=== PATIENT | male | born 1935 | race Caucasian/White ===

== ENCOUNTER 2016-10-13 12:25 | Emergency (ER) | payer BC ==
[~2016-10-13] VITALS: Ht 170.2 cm; Wt 71.0 kg
[2016-10-13 12:28] VITALS: Ht 170.2 cm; Wt 71.0 kg
[2016-10-13] MEDS ORDERED: ONDANSETRON (ODT) 4 MG TAB ODT STA (12:28)
[2016-10-13] MEDS ORDERED: OXYCODONE/ACETAMINOPHEN (5/325) TAB PO ONE (12:30)
--- NOTE | 2016-10-13 12:35 | ERD ---
ER Documentation Chief Complaint Date/Time DATE: 10/13/16 TIME: 12:30 Chief Complaint HPI Patient is an 81-year-old male who was at [employer] exercising when he accidentally tripped over an exercise bike and hit the right side of his chest on his luggage in which he carries his exercise equipment. The handle was upright and this is what he hit the right side of his chest on. He denies any dyspnea, hemoptysis, head trauma, neck pain, back pain, abdominal pain, vomiting, visual changes, paresthesias, or focal weakness. He states he was in his usual state of health prior to the fall. He did not have chest pain prior to the fall. He says it hurts in the right lower chest rib area where he hit his chest on his luggage. It hurts when he moves his chest and when he takes a deep breath and it is better when he holds his chest. He denies any abrasions, bleeding, or bruises. In the remainder of the systems are negative. ROS All systems reviewed and are negative except as per history of present illness. Medications Home Meds Reported Medications Simvastatin* (Zocor*) 10 Mg Tablet, 10 MG PO QHS, #30 TAB 10/13/16 Gabapentin* (Gabapentin*) 100 Mg Capsule, 100 MG PO TID Y for PAIN, #90 CAP 10/13/16 Cholecalciferol* (Vitamin D3*) 1,000 Unit Tablet, 2000 UNIT PO DAILY, TAB 10/13/16 Finasteride* (Finasteride*) 5 Mg Tablet, 5 MG PO DAILY, TAB 10/13/16 Allopurinol* (Allopurinol*) 300 Mg Tablet, 150 MG PO DAILY, TAB 10/13/16 Allergies Allergies: Coded Allergies: No Known Allergy (Unverified , 10/13/16) FmHx Family History: coronary disease Physical Exam Vitals Vital Signs Date Time Temp Pulse Resp B/P Pulse Ox O2 Delivery O2 Flow Rate FiO2 10/13/16 12:28 97.8 61 18 184/76 100 Physical Exam Const: [] Well-developed well-nourished male sitting on the bed in no acute distress Head: Atraumatic normocephalic Eyes: Normal Conjunctiva ENT: Normal External Ears, Nose and Mouth. Neck: Full range of motion..~ No meningismus. Resp: Clear to auscultation bilaterally, mild tenderness to palpation in the right middle and lower chest wall, no crepitus noted, no chest wall deformities , no flail chest Cardio: Regular rate and rhythm, no murmurs Abd: Soft, non tender, non distended. Normal bowel sounds Skin: No petechiae or rashes Back: No midline or flank tenderness Ext: No cyanosis, or edema, moves all extremities with no deformities noted Neur: Awake and alert oriented 3, with a GCS of 15, moves all extremities equally Psych: Normal Mood and Affect Results 24 hrs Current Medications Medications (Trade) Dose Ordered Sig/Juan A Route PRN Reason Start Time Stop Time Status Last Admin Dose Admin Oxycodone/ Acetaminophen (Percocet (5/ 325)) 2 tab ONCE ONCE PO 10/13/16 12:30 10/13/16 12:31 DC 10/13/16 12:39 Ondansetron HCl (Zofran Odt) 4 mg ONCE STAT ODT 10/13/16 12:28 10/13/16 12:30 DC 10/13/16 12:39 Procedures/MDM Differential includes but is not limited to rib fracture, pneumothorax, chest wall strain, rib contusion, pulmonary contusion, fall Chest x-ray does not reveal any acute cardiopulmonary process Rib films do not reveal any acute fractures 1350: Patient states he feels much improved. He states he feels he is ready for discharge. He appears stable for discharge home with follow-up as an outpatient. Departure Diagnosis: Primary Impression: Fall Encounter type: initial encounter Qualified Code: W19.XXXA - Fall, initial encounter Additional Impression: Contusion of rib on right side Encounter type: initial encounter Qualified Code: S20.211A - Contusion of rib on right side, initial encounter Condition: Stable Patient Instructions: Fall, Mechanical, Rib Contusion Additional Instructions: Activity as is comfortable for you. Take the pain medications as needed. Please see her primary care physician in the next 7-10 days if you are not improving or if you require any pain medication refills. Return to the emergency department for any new or worsening symptoms. ALLYSON STALEY Oct 13, 2016 12:35
[2016-10-13] MEDS ORDERED: FINA5TAB4 PO (13:37)
[2016-10-13] MEDS ORDERED: ALLO300T2 PO (13:37)
[2016-10-13] MEDS ORDERED: GABA100C14 PO (13:38)
[2016-10-13] MEDS ORDERED: CHOL100062 PO (13:38)
[2016-10-13] MEDS ORDERED: SIMV10TA PO (13:38)
--- NOTE | 2016-10-13 13:42 | RADRPT ---
PROCEDURE: XR right rib series. CLINICAL INDICATION: Rib pain TECHNIQUE: 2 views of the rib cage are available for review COMPARISON: No comparison study available FINDINGS: The ribs are normal in mineralization and architecture. No fracture is identified. No osseous lesi on is identified. The visualized lung alvarez are unremarkable. The pleural spaces are unremarkable . No effusion or pneumothorax is identified. IMPRESSION: Unremarkable examination RPTAT: [facility] .Chaim Garrison MD, MD Date Time Electronically viewed and signed by .Chaim Garrison MD, on 10/13/2016 13:42 .B/
--- NOTE | 2016-10-13 13:43 | RADRPT ---
PROCEDURE: XR Chest. CLINICAL INDICATION: Chest pain TECHNIQUE: Chest PA and lateral COMPARISON: None available FINDINGS: The mediastinal structures are unremarkable. There is calcification of the thoracic aorta (consiste nt with atherosclerosis). The heart is normal in size and configuration. The pulmonary vascularity is normal. The lung alvarez are unremarkable. No consolidation is identified. The pleural spaces are unremarkable. There are senescent changes of the axial skeleton. IMPRESSION: Calcification of the thoracic aorta (consistent with atherosclerosis). No evidence for active cardiopulmonary disease. RPTAT: [facility] .Chaim Garrison MD, MD Date Time Electronically viewed and signed by .Chaim Garrison MD, on 10/13/2016 13:42 .B/
[2016-10-13] MEDS ORDERED: ETOD300C26 PO (13:54)
[2016-10-13] MEDS ORDERED: TRAM50TA2 PO (13:54)
[2016-10-13 14:52] VITALS: BP 133/71; PULSE 62; RESP 18
== END 2016-10-13 14:53 | disposition home or self-care (01) ==
LOC: E/R 12:25
DX: S20.211A Contusion of right front wall of thorax, initial encounter (principal); R40.2142 Coma scale, eyes open, spontaneous, at arrival to emergency department; R40.2252 Coma scale, best verbal response, oriented, at arrival to emergency department; R40.2362 Coma scale, best motor response, obeys commands, at arrival to emergency department; I10 Essential (primary) hypertension; W01.198A Fall on same level from slipping, tripping and stumbling with subsequent striking against other object, initial encounter; Y92.89 Other specified places as the place of occurrence of the external cause
CPT/HCPCS: 71020; 71100; 99284